=== PATIENT | male | born 1960 | race Caucasian/White ===

== ENCOUNTER 2020-11-06 14:05 | Emergency (ER) | payer MEDICARE, SELFPAY ==
[2020-11-06] VITALS (11 sets, daily range): BP systolic 145–177; BP diastolic 95–109; PULSE 67–81; RESP 7–18; TEMP 36.6–36.7; O2SAT 95–99; BMI 24.3
--- NOTE | 2020-11-06 15:05 | ED_ITS ---
HPI - Animal Bite General: Chief Complaint: Animal Bite Stated Complaint: snake bite on thumb, swelling Time Seen by Provider: 11/06/20 15:01 History of Present Illness: HPI narrative: This patient is a 59-year-old male who presents to the emergency department for snakebite. Patient states he was bitten by a rattlesnake at approximately 10:00 this morning approximately 5 hours ago. Patient states he was rattlesnake. Patient googled images of the snake to verify the type. Patient initially states that he chopped the head off the snake with a shovel and then went down to move it out of the way and still got bit. Patient has significant swelling to the left hand. Initially at the site had some mild swelling and was outlined via by EMS at the scene. However the patient refused transport to the emergency department at that time. Patient now presents to the emergency department swelling has extended up to the mid forearm. Upon my entering the room patient did have ice pack on the hand. According to guidelines and recommendations it is do not elevate hand above the level of the heart do not apply tourniquet and do not apply ice to the lesion. Will do medical evaluation treat as needed. Onset (ago): hour(s) Animal: snake Mechanism: bite Location - Extremities: Left: hand (Left thumb) Associated symptoms: Deny chills, fever(s) or headache(s) Review of Systems General: Reports: 10 or more systems reviewed and unremarkable except in HPI and below Const: Denies: fever(s), chills, body aches or fatigue Eyes: Denies: change in vision or blurry vision ENMT: Denies: throat pain, hoarseness or mouth pain Card: Denies: chest pain, palpitations, irregular heart rhythm, edema, swelling of feet/ankles or lightheadedness Resp: Denies: dyspnea, productive cough, non-productive cough, wheezing or pain on inspiration GI: Denies: abdominal pain, nausea or vomiting : Denies: flank pain, dysuria, urinary frequency, urinary urgency or urinary hesitancy Musc: Denies: neck pain, back pain, extremity pain, extremity swelling, joint pain, joint swelling, joint redness, joint warmth or limited range of motion Skin/Breast: Reports: skin tenderness, skin swelling and new lesions; Denies: rash, pruritus or erythema Neuro: Denies: headache(s), numbness in extremities or weakness in extremities Psych: Denies: anxiety or depression Physical Exam Const: COMMON NORMALS: no acute distress, average body habitus, patient oriented x3, no limitations, healthy appearing, alert and well nourished HENMT: COMMON NORMALS: normocephalic, atraumatic, hearing grossly normal bilaterally, external ears normal, EAC's normal, TM's normal bilaterally, Normal external nose present, Normal nasal mucous membranes and turbinates present, moist oral mucous membranes, oropharynx normal, dentition normal and gingiva normal HEAD & SCALP: normocephalic and atraumatic NOSE: Normal external nose present and Normal nasal mucous membranes and turbinates present EXTERNAL EAR: Yes external ears normal EXTERNAL AUDITORY CANAL: EAC's normal TYMPANIC MEMBRANE: TM's normal bilaterally Neck/C-Spine: COMMON NORMALS: full ROM, no lymphadenopathy, supple, no meningeal signs, no JVD, Thyroid normal and No carotid bruits THYROID: Thyroid normal Chest: COMMONS NORMALS: normal inspection of the chest, normal palpation of entire chest wall, normal inspection of the breasts and normal palpation of the breasts Breast/axilla inspection: Yes normal inspection of the breasts BREAST/AXILLA PALPATION: Yes normal palpation of the breasts Resp: COMMON NORMALS: normal respiratory effort, No retractions, No use of accessory muscles, clear to auscultation bilaterally and percussion normal AUSCULTATION: clear to auscultation bilaterally PERCUSSION: percussion normal Cardio: COMMON NORMALS: no JVD, regular rate, regular rhythm, S1 normal heart sound present, S2 normal heart sound present, No gallops present (Cardio), No clicks present (Cardio), No murmurs present (Cardio), No rub (Cardio) and Peripheral pulses 2+ throughout RATE: regular rate RHYTHM: regular rhythm HEART SOUNDS: S1 normal heart sound present and S2 normal heart sound present PERIPHERAL PULSES: Peripheral pulses 2+ throughout GI: COMMON NORMALS: Normal to inspection, nondistended, normoactive bowel sounds present, Soft to palpation, non-tender, No hepatosplenomegaly present, no masses and no bruits PALPATION: Yes Soft to palpation and Yes No hepatosplenomegaly present : COMMON NORMALS: Yes no CVA tenderness BLADDER/KIDNEY EXAM: Yes no CVA tenderness Back/Pelvis: COMMON NORMALS: no CVA tenderness, thoracic and lumbar spine normal to inspection, no thoracic nor lumbar tenderness, thoraco-lumbar ROM normal and straight leg raise negative bilaterally Extremity: COMMON NORMALS: normal to inspection, full ROM, capillary refill normal, no joint enlargement, no calf tenderness and no pedal edema RIGHT UPPER EXTREMITY: Yes hand & digits (Patient appears to have site of an envenomation. Swelling is now extending) Right hand and digits: Yes inspection (Patient has bite location and distal left thumb. Has a purplish bullae ) and Yes other (Swelling extending up to mid forearm. We will continue to monitor) Neuro: COMMON NORMALS: patient oriented x3 SENSORIUM/ORIENTATION: Yes alert MENINGEAL SIGNS: Yes no meningeal signs Course Reevaluation(s): Reevaluation #1: Patient's D-dimer elevated greater than 20. Fibrinogen is decreased. Patient's PTT and INR are increased. Patient has had increased pain and increased swelling. Patient had initial markings to demarcate the swelling at the time of bite this subsequently upon arrival and within the past hour has extended beyond our demarcation lines. I did discuss at length with patient about concerns of worsening symptoms related to rattlesnake bite. Patient is agreeable be administered CroFab. I did discuss with pharmacy and they will adjust CroFab orders to do appropriate dosage and. Patient is agreeable to admit to the hospital. Time: 16:01 Consultations: Consultation #1: I did discuss at length with Dr. Lauren Javier. She is agreed to accept this patient for admission. She will monitor patient closely for any adverse reactions to CroFab. And any worsening signs and symptoms due to rattlesnake bite. Time: 16:10 Vital Signs: Vital signs: Vital Signs Temperature 98.1 F 11/06/20 14:51 Pulse Rate 81 11/06/20 14:51 Respiratory Rate 16 11/06/20 14:51 Blood Pressure 156/108 11/06/20 14:51 Pulse Oximetry 96 11/06/20 14:51 MDM - Animal Bite MDM Narrative: Medical decision making narrative: This patient is a 59-year-old male who presents to the emergency department for snakebite. Patient states he was bitten by a rattlesnake at approximately 10:00 this morning approximately 5 hours ago. Patient states he was rattlesnake. Patient googled images of the snake to verify the type. Patient initially states that he chopped the head off the snake with a shovel and then went down to move it out of the way and still got bit. Patient has significant swelling to the left hand. Initially at the site had some mild swelling and was outlined via by EMS at the scene. However the patient refused transport to the emergency department at that time. Patient now presents to the emergency department swelling has extended up to the mid forearm. Upon my entering the room patient did have ice pack on the hand. According to guidelines and recommendations it is do not elevate hand above the level of the heart do not apply tourniquet and do not apply ice to the lesion. Patient's D-dimer elevated greater than 20. Fibrinogen is decreased. Patient's PTT and INR are increased. Patient has had increased pain and increased swelling. Patient had initial markings to demarcate the swelling at the time of bite this subsequently upon arrival and within the past hour has extended beyond our demarcation lines. I did discuss at length with patient about concerns of worsening symptoms related to rattlesnake bite. Patient is agreeable be administered CroFab. I did discuss with pharmacy and they will adjust CroFab orders to do appropriate dosage and. Patient is agreeable to admit to the hospital. I did discuss at length with Dr. Lyon. She is agreed to accept this patient for admission. She will monitor patient closely for any adverse reactions to CroFab. And any worsening signs and symptoms due to rattlesnake bite. Differential Diagnosis: Differential diagnosis animal bite: Likely bite by animal Medical Records: Attestation: I reviewed the patient's medical records. Lab Data: Attestation: I reviewed the patient's lab results. Labs: Lab Results 11/06/20 11/06/20 Range/Units 15:11 15:11 PT 16.00 H (12.1-14.9) SECO NDS INR 1.24 H (0.8-1.2) APTT 30.1 (23.9-36.7) SECO NDS Fibrinogen 103 L (174-498) mg/dL D-Dimer >= 20.00 H (0-0.59) ug/mIFE U Sodium 142 (136-145) mmol/L Potassium 4.1 (3.5-5.1) mmol/L Chloride 104 (98-107) mmol/L Carbon Dioxide 27 (22-29) mmol/L Anion Gap 15.1 (5-19) BUN 14 (8-23) mg/dL Creatinine 0.8 (0.7-1.2) mg/dL GFR Calculation 98.3 (90-130) mL/min Glucose 92 (65-115) mg/dL Calculated Osmolal ity 294 (285-295) mOsm/k g Calcium 9.7 (8.5-10.5) mg/dL Total Bilirubin 0.5 (0.15-1.2) mg/dL AST 30 (0-40) U/L ALT 25 (0-41) U/L Alkaline Phosphata se 75 (40-130) IU/L Creatine Kinase 224 (39-308) U/L Total Protein 7.7 (6.6-8.7) g/dL Albumin 4.6 (3.5-5.2) g/dL Globulin 3.1 (1.3-4.6) g/dL Discharge Plan Discharge Patient Disposition: Admitted As Inpatient Clinical Impression: Snake bite Condition: Stable Coding Level of Care Code ED Frame Stripper And Crusher for Lilian Fwd Exam Comprehensive
[2020-11-06 15:21] LABS: Basophils # 0.1 10^3/uL (0.0-0.1); Basophils % 0.8 %; Eosinophils # 0.1 10^3/uL (0.0-0.8); Hematocrit 44.7 % (42.0-52.0); Hemoglobin 14.9 g/dL (11.7-16.6); Lymphocytes # 1.2 10^3/uL (0.8-4.8); Lymphocytes % 18.6 %; Mean Corpuscular HGB Conc 33.3 g/dL (30.0-36.0); Mean Corpuscular Volume 89.9 fL (80-94); Mean Platelet Volume 11.9 fL (7.4-10.4); Monocytes # 0.4 10^3/uL (0.2-0.9); Monocytes % 5.6 %; Neutrophils # 4.69 10^3/uL (1.8-7.7); Neutrophils % 72.8 %; Nucleated Red Blood Cells % 0 %; Red Blood Count 4.97 10^6/uL (4.1-5.3); Red Cell Distribution Width 14.6 % (12.1-15.1); White Blood Count 6.4 10^3/uL (4.0-10.0)
[2020-11-06 15:31] LABS: INR 1.24 (0.8-1.2); Partial Thromboplastin Time 30.1 SECONDS (23.9-36.7)
[2020-11-06] MEDS: ondansetron 2 mg/ML SDV 2 mL 4 MG IVP (15:37)
[2020-11-06] MEDS: morphine 4 mg/mL SDV 1 mL 2 MG IVP (15:37)
[2020-11-06 15:38] LABS: Alanine Aminotransferase 25 U/L (0-41); Albumin Level 4.6 g/dL (3.5-5.2); Alkaline Phosphatase 75 IU/L (40-130); Anion Gap 15.1 (5-19); Aspartate Amino Transferase 30 U/L (0-40); Blood Urea Nitrogen 14 mg/dL (8-23); Calcium 9.7 mg/dL (8.5-10.5); Carbon Dioxide 27 mmol/L (22-29); Chloride 104 mmol/L (98-107); Creatine Phosphokinase 224 U/L (39-308); Fibrinogen 103 mg/dL (174-498); Globulin 3.1 g/dL (1.3-4.6); Glomerular Filtration Rate 98.3 mL/min (90-130); Glucose 92 mg/dL (65-115); Osmolality Calculated 294 mOsm/kg (285-295); Potassium 4.1 mmol/L (3.5-5.1); Sodium 142 mmol/L (136-145); Total Bilirubin 0.5 mg/dL (0.15-1.2); Total Protein 7.7 g/dL (6.6-8.7)
[2020-11-06] MEDS: tetanus-dipt-pertussis 0.5 mL SDV IM (15:38)
[2020-11-06 15:49] LABS: D Dimer >= 20.00 ug/mIFEU (0-0.59)
[2020-11-06 16:19] LABS: Platelet Count 8 10^3/cmm (130-400)
[2020-11-06 16:20] LABS: Slide Review Slide Review Perform
[2020-11-06] MEDS: crotalidae antivenin 4 GM in sodium chloride 0.9% 250 ML IV (16:54)
--- NOTE | 2020-11-06 16:57 | PC.NURSE ---
1653 initiated Crofab at 50ml/hr for first 10 minutes at this time
[2020-11-06] MEDS: morphine 4 mg/mL SDV 1 mL IVP ×2 (18:05→22:22)
[2020-11-06] MEDS: diphenhydrAMINE 50 mg/mL SDV 1mL 12.5 MG IVP (18:25)
[2020-11-06] MEDS: sodium chloride 0.9% (100 ml) 100 ML (21:00)
[2020-11-06 22:22] LABS: Basophils % 0.7 %; Eosinophils # 0.2 10^3/uL (0.0-0.8); Eosinophils % 2.9 %; Hematocrit 42.1 % (42.0-52.0); Hemoglobin 13.7 g/dL (11.7-16.6); Lymphocytes # 1.1 10^3/uL (0.8-4.8); Lymphocytes % 20.5 %; Mean Corpuscular HGB Conc 32.5 g/dL (30.0-36.0); Mean Corpuscular Hemoglobin 29.7 pg (28.0-34.0); Mean Corpuscular Volume 91.1 fL (80-94); Mean Platelet Volume 11.5 fL (7.4-10.4); Monocytes # 0.4 10^3/uL (0.2-0.9); Monocytes % 6.7 %; Neutrophils # 3.81 10^3/uL (1.8-7.7); Nucleated Red Blood Cells % 0 %; Platelet Count 93 10^3/cmm (130-400); Red Blood Count 4.62 10^6/uL (4.1-5.3); Red Cell Distribution Width 14.7 % (12.1-15.1); White Blood Count 5.5 10^3/uL (4.0-10.0)
--- NOTE | 2020-11-06 22:43 | PC.NURSE ---
Jade from poison control calls at this time and recommends repeat cbc, cmp, and coags
[2020-11-06 23:30] LABS: INR 1.28 (0.8-1.2); Partial Thromboplastin Time 28.5 SECONDS (23.9-36.7)
--- NOTE | 2020-11-07 00:02 | PC.NURSE ---
report to Mick HERNANDEZ at [facility] ICU at Call
--- NOTE | 2020-11-07 00:03 | PC.NURSE ---
report to Shaquille HERNANDEZ
--- NOTE | 2020-11-07 00:19 | PC.NURSE ---
report to Lorenzo HERNANDEZ
[2020-11-07 00:43] VITALS: BP 157/92; PULSE 75; RESP 18; O2SAT 96
--- NOTE | 2020-11-07 00:58 | PC.NURSE ---
EMS arrived to transport the patient; patient not found in room. was not witnessed leaving. patient assumed eloped.
--- NOTE | 2020-11-07 01:12 | PC.NURSE ---
police called due to patient leaving with assumed having IV still in arm; no evidence in room that patient has taken it out; patient did leave his cell phone on the bed, although it is not charged at this time. 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
--- NOTE | 2020-11-07 01:45 | PC.NURSE ---
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 Police notified of update. Contact in pt chart notified.
== END 2020-11-07 01:00 | disposition left against medical advice (07) ==
PROVIDERS: Emergency Provider Emergency Medicine
DX: T63.011A Toxic effect of rattlesnake venom, accidental (unintentional), initial encounter (principal); Z23 Encounter for immunization; W59.11XA Bitten by nonvenomous snake, initial encounter; D69.6 Thrombocytopenia, unspecified; M54.9 Dorsalgia, unspecified; G89.29 Other chronic pain; Z86.19 Personal history of other infectious and parasitic diseases; F17.210 Nicotine dependence, cigarettes, uncomplicated
CPT/HCPCS: 36415; 36430; 80053; 81001; 82550; 83605; 85025; 85362; 85378; 85384; 85610; 85730; 86900; 87040; 90471; 90715; 93005; 96361; 96365; 96375; 96376; 99285; G0378; J0840; J1200; J2270; J2405; J7030; J7050; P9016

== ENCOUNTER 2020-11-07 09:37 | Observation (INO) | payer MEDICARE, SELFPAY ==
[2020-11-07] VITALS (26 sets, daily range): BP systolic 127–175; BP diastolic 91–117; PULSE 63–95; RESP 12–28; O2SAT 91–100; BMI 24.3
--- NOTE | 2020-11-07 09:42 | ECG_ITS ---
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: : 1960 Requested By: Rolando Styles Order Number: [id number] Reading MD: PALOMO MONK Measurements Intervals [place] Rate: 96 P: 69 NC: 147 QRS: 64 QRSD: 110 T: 50 QT: 384 QTc: 486 Interpretive Statements SINUS RHYTHM WITH OCCASIONAL VENTRICULAR PREMATURE COMPLEXES LEFT ATRIAL ENLARGEMENT [-0.15mV P WAVE IN V1/V2] POSSIBLE INFERIOR MYOCARDIAL INFARCTION [30 ms Q WAVE IN II/aVF], PROBABLY OLD Compared to ECG 12/17/2017 09:17:56 Ventricular premature complex(es) now present Atrial abnormality now present Myocardial infarct finding now present Electronically Signed On 11-07-2020 19:24:27 CDT by PALOMO MONK [id number]
--- NOTE | 2020-11-07 09:53 | ED_ITS ---
HPI - Animal Bite General: Chief Complaint: General Medical Stated Complaint: SNAKE BITE Time Seen by Provider: 11/07/20 09:42 History of Present Illness: HPI narrative: 59-year-old male presents emergency room with complaints of a snakebite. He was bitten on the left hand yesterday he was in the emergency room received CroFab.He had developed severe thrombocytopenia and his platelet count was down to 8. He received platelets his platelet count was back up to 93. His INR was 128 his D-dimer was greater than 20 his fibrinogen was 103. CMP was unremarkable he was set to be transferred to an outside facility because we have limited amount of CroFab sandra ilable he was given 2 doses. Patient ended up leaving AMA. He returns today because he is not feeling well. He has increased swelling in his left arm he is a large blood-filled bulla at the site of the bite. There is bruising and swelling of the forearm extending to the midshaft of the humerus. Edema is somewhat dependent. Patient has noticed darkened urine he denies any dysuria urgency or frequency. MD complaint: animal bite ( Rattle snake) Onset (ago): hour(s) Animal: snake Description of animal: wild animal Mechanism: bite Location - Extremities: Left: hand Pain description: dull and constant Associated symptoms: Deny bleeding, chills, cough, diaphoresis, erythema, fever(s), headache(s), numbness, rash, short of breath, syncope, weakness or wound drainage Review of Systems Const: Denies: fever(s), chills or diaphoresis ENMT: Denies: throat pain, ear or mastoid pain, nasal discharge or nasal congestion Card: Denies: syncope Resp: Denies: dyspnea, productive cough or non-productive cough GI: Denies: abdominal pain, nausea, vomiting, hematemesis, coffee ground emesis, diarrhea, constipation, bloating, hematochezia or melena : Denies: flank pain, dysuria, urinary frequency or urinary urgency Skin/Breast: Denies: rash or pruritus Neuro: Denies: headache(s) PFS ED PFSH: Medical History (Updated 11/11/20 @ 06:04 by Rolando Burton DO) Chronic back pain Chronic constipation Chronic pain DJD (degenerative joint disease) Hepatitis C Stage II fibrosis per liver biopsy in the past. Hepatitis C has been treated Hydrocele Surgical History (Updated 11/07/20 @ 14:19 by Juan Dominguez MD) History of back surgery History of hernia repair History of tonsillectomy Family History (Updated 11/07/20 @ 14:20 by Juan Dominguez MD) Other Cancer Social History (Updated 11/07/20 @ 14:20 by Juan Dominguez MD) Smoking and tobacco status: current some day smoker Alcohol intake: current Alcohol intake frequency: 0-2 Drinks per Day Physical Exam Const: COMMON NORMALS: no acute distress GENERAL APPEARANCE: cooperative and comfortable HENMT: COMMON NORMALS: normocephalic, atraumatic and hearing grossly normal bilaterally HEAD & SCALP: normocephalic and atraumatic Neck/C-Spine: COMMON NORMALS: no JVD Resp: COMMON NORMALS: normal respiratory effort, No retractions, No use of accessory muscles and clear to auscultation bilaterally AUSCULTATION: clear to auscultation bilaterally Cardio: COMMON NORMALS: no JVD, regular rate, regular rhythm and No murmurs present (Cardio) RATE: regular rate RHYTHM: regular rhythm GI: COMMON NORMALS: Soft to palpation and No hepatosplenomegaly present AUSCULTATION: Yes normoactive bowel sounds PALPATION: Yes Soft to palpation, No Tenderness to palpation present (GI), No Guarding due to palpation present (GI) and Yes No hepatosplenomegaly present Extremity: NARRATIVE EXTREMITY EXAM: Blood-filled bruise on the medial aspect of the left thumb. There is swelling of the hand and forehead. No significant pain with passive range of motion is also dependent edema of the medial and posterior aspects of the left upper arm to the midshaft of the humerus with mild ecchymosis. No induration no erythema. Skin: COMMON NORMALS: no rashes or lesions noted GENERAL SKIN EXAM: no r ashes or lesions noted and no erythema Course Vital Signs: Vital signs: Vital Signs Temperature 98 F 11/08/20 14:11 Pulse Rate 84 11/08/20 14:11 Respiratory Rate 25 H 11/08/20 14:11 Blood Pressure 148/98 11/08/20 14:11 Pulse Oximetry 93 11/08/20 14:11 MDM - Animal Bite MDM Narrative: Medical decision making narrative: Discussed Dr. Ramos also contacted poison control recommendations and toxicology they do recommend that we monitor him to the ICU and administer more CroFab. Orders have been written. Lab Data: Labs: Lab Results 11/07/20 11/07/20 11/07/20 Range/Units 10:19 10:25 10:25 WBC 5.1 (4.0-10.0) 10^3/ uL RBC 4.93 (4.1-5.3) 10^6/u L Hgb 14.6 (11.7-16.6) g/dL Hct 44.6 (42.0-52.0) % MCV 90.5 (80-94) fL MCH 29.6 (28.0-34.0) pg MCHC 32.7 (30.0-36.0) g/dL RDW 14.8 (12.1-15.1) % Plt Count 80 L (130-400) 10^3/c mm MPV 12.0 H (7.4-10.4) fL Neut % (Auto) 71.9 % Lymph % (Auto) 16.6 % [place] % (Auto) 6.8 % Eos % (Auto) 3.7 % Baso % (Auto) 0.8 % Neut # (Auto) 3.67 (1.8-7.7) 10^3/u L Lymph # (Auto) 0.9 (0.8-4.8) 10^3/u L [place] # (Auto) 0.4 (0.2-0.9) 10^3/u L Eos # (Auto) 0.2 (0.0-0.8) 10^3/u L Baso # (Auto) 0.0 (0.0-0.1) 10^3/u L Nucleated RBC % (a uto) 0 % Nucleated RBCs # 0.0 /100WBC PT 14.80 (12.1-14.9) SECO NDS INR 1.13 (0.8-1.2) APTT 27.1 (23.9-36.7) SECO NDS Fibrin Degrad Prod ucts Pos, >=40 H (NEG) ug/mL D-Dimer >= 20.00 H (0-0.59) ug/mIFE U Sodium (136-145) mmol/L Potassium (3.5-5.1) mmol/L Chloride (98-107) mmol/L Carbon Dioxide (22-29) mmol/L Anion Gap (5-19) BUN (8-23) mg/dL Creatinine (0.7-1.2) mg/dL GFR Calculation (90-130) mL/min Glucose (65-115) mg/dL Calculated Osmolal ity (285-295) mOsm/k g Lactic Acid (0.5-2.2) mmol/L Calcium (8.5-10.5) mg/dL Total Bilirubin (0.15-1.2) mg/dL AST (0-40) U/L ALT (0-41) U/L Alkaline Phosphata se (40-130) IU/L Creatine Kinase (39-308) U/L Total Protein (6.6-8.7) g/dL Albumin (3.5-5.2) g/dL Globulin (1.3-4.6) g/dL Urine Color Dark yellow (Yellow) Urine Appearance Clear (CLEAR) Urine pH 5 (5-7) Ur Specific Gravit y 1.025 (1.005-1.030) Urine Protein Neg (Negative) Urine Glucose (UA) Norm (Normal) Urine Ketones Negative (Negative) Urine Blood 2+ H (Negative) Urine Nitrate Negative (Negative) Urine Bilirubin Neg (Negative) Urine Urobilinogen 1 H (Negative) mg/dL Ur Leukocyte Princess ase Negative (Negative) Urine RBC Rare (0-2) /hpf Urine WBC 0-4 H (0-5) /hpf Ur Squamous Epith Cells 0-4 H (0-5) /hpf Amorphous Sediment Not Reportable Urine Bacteria Trace (NONE) /hpf 11/07/20 11/07/20 Range/Units 10:25 10:25 WBC (4.0-10.0) 10^3/ uL RBC (4.1-5.3) 10^6/u L Hgb (11.7-16.6) g/dL Hct (42.0-52.0) % MCV (80-94) fL MCH (28.0-34.0) pg MCHC (30.0-36.0) g/dL RDW (12.1-15.1) % Plt Count (130-400) 10^3/c mm MPV (7.4-10.4) fL Neut % (Auto) % Lymph % (Auto) % [place] % (Auto) % Eos % (Auto) % Baso % (Auto) % Neut # (Auto) (1.8-7.7) 10^3/u L Lymph # (Auto) (0.8-4.8) 10^3/u L [place] # (Auto) (0.2-0.9) 10^3/u L Eos # (Auto) (0.0-0.8) 10^3/u L Baso # (Auto) (0.0-0.1) 10^3/u L Nucleated RBC % (a uto) % Nucleated RBCs # /100WBC PT (12.1-14.9) SECO NDS INR (0.8-1.2) APTT (23.9-36.7) SECO NDS Fibrin Degrad Prod ucts (NEG) ug/mL D-Dimer (0-0.59) ug/mIFE U Sodium 139 (136-145) mmol/L Potassium 4.3 (3.5-5.1) mmol/L Chloride 103 (98-107) mmol/L Carbon Dioxide 27 (22-29) mmol/L Anion Gap 13.3 (5-19) BUN 10 (8-23) mg/dL Creatinine 0.7 (0.7-1.2) mg/dL GFR Calculation 114.6 (90-130) mL/min Glucose 133 H (65-115) mg/dL Calculated Osmolal ity 289 (285-295) mOsm/k g Lactic Acid 1.0 (0.5-2.2) mmol/L Calcium 9.0 (8.5-10.5) mg/dL Total Bilirubin 0.7 (0.15-1.2) mg/dL AST 26 (0-40) U/L ALT 21 (0-41) U/L Alkaline Phosphata se 81 (40-130) IU/L Creatine Kinase 158 (39-308) U/L Total Protein 7.6 (6.6-8.7) g/dL Albumin 4.6 (3.5-5.2) g/dL Globulin 3.0 (1.3-4.6) g/dL Urine Color (Yellow) Urine Appearance (CLEAR) Urine pH (5-7) Ur Specific Gravit y (1.005-1.030) Urine Protein (Negative) Urine Glucose (UA) (Normal) Urine Ketones (Negative) Urine Blood (Negative) Urine Nitrate (Negative) Urine Bilirubin (Negative) Urine Urobilinogen (Negative) mg/dL Ur Leukocyte Princess ase (Negative) Urine RBC (0-2) /hpf Urine WBC (0-5) /hpf Ur Squamous Epith Cells (0-5) /hpf Amorphous Sediment Urine Bacteria (NONE) /hpf Discharge Plan Discharge Patient Disposition: Placed in Observation Admit Provider: Juan Dominguez Clinical Impression: Snake bite, Thrombocytopenia, Hepatitis C Coding Level of Care Code ED Information Clerk Brokerage for Chg Fwd Exam Detailed
[2020-11-07 10:38] LABS: Basophils % 0.8 %; Eosinophils # 0.2 10^3/uL (0.0-0.8); Eosinophils % 3.7 %; Hematocrit 44.6 % (42.0-52.0); Hemoglobin 14.6 g/dL (11.7-16.6); Lymphocytes # 0.9 10^3/uL (0.8-4.8); Lymphocytes % 16.6 %; Mean Corpuscular HGB Conc 32.7 g/dL (30.0-36.0); Mean Corpuscular Hemoglobin 29.6 pg (28.0-34.0); Mean Corpuscular Volume 90.5 fL (80-94); Monocytes # 0.4 10^3/uL (0.2-0.9); Monocytes % 6.8 %; Neutrophils # 3.67 10^3/uL (1.8-7.7); Neutrophils % 71.9 %; Nucleated Red Blood Cells % 0 %; Platelet Count 80 10^3/cmm (130-400); Red Blood Count 4.93 10^6/uL (4.1-5.3); Red Cell Distribution Width 14.8 % (12.1-15.1); White Blood Count 5.1 10^3/uL (4.0-10.0)
[2020-11-07 10:53] LABS: INR 1.13 (0.8-1.2)
[2020-11-07 10:54] LABS: Partial Thromboplastin Time 27.1 SECONDS (23.9-36.7)
[2020-11-07 10:58] LABS: Add Urine Microscopic? YES; Bilirubin Urine Neg (Negative); Blood Urine 2+ (Negative); Glucose Urine UA Norm (Normal); Ketones Urine Negative (Negative); Leukocyte Esterase Urine Negative (Negative); Nitrate Urine Negative (Negative); Protein Urine Neg (Negative); Specific Gravity, Urine 1.025 (1.005-1.030); Urine Appearance Clear (CLEAR); Urine Color Dark Yellow (Yellow); Urobilinogen Urine 1 mg/dL (Negative); pH Urine 5 (5-7)
[2020-11-07] MEDS: ondansetron 2 mg/ML SDV 2 mL 4 MG IVP ×2 (10:59→19:09)
[2020-11-07] MEDS: morphine 4 mg/mL SDV 1 mL IVP (10:59)
[2020-11-07 11:04] LABS: Alanine Aminotransferase 21 U/L (0-41); Albumin Level 4.6 g/dL (3.5-5.2); Alkaline Phosphatase 81 IU/L (40-130); Anion Gap 13.3 (5-19); Aspartate Amino Transferase 26 U/L (0-40); Blood Urea Nitrogen 10 mg/dL (8-23); Carbon Dioxide 27 mmol/L (22-29); Chloride 103 mmol/L (98-107); Creatine Phosphokinase 158 U/L (39-308); Glomerular Filtration Rate 114.6 mL/min (90-130); Glucose 133 mg/dL (65-115); Osmolality Calculated 289 mOsm/kg (285-295); Potassium 4.3 mmol/L (3.5-5.1); Sodium 139 mmol/L (136-145); Total Bilirubin 0.7 mg/dL (0.15-1.2); Total Protein 7.6 g/dL (6.6-8.7)
[2020-11-07 11:04] LABS: Bacteria Urine TRACE /hpf; RBC Urine RARE /hpf (0-2); Squamous Epithelial Cell Urine 0-4 /hpf (0-5); WBC Urine 0-4 /hpf (0-5)
[2020-11-07 11:05] LABS: Add Urine Culture? No
[2020-11-07 11:10] LABS: D Dimer >= 20.00 ug/mIFEU (0-0.59)
--- NOTE | 2020-11-07 12:48 | PC.NURSE ---
spoke with Candy at Poison Control. Gave instructions/recommendations to ED physician and hospitalist.
--- NOTE | 2020-11-07 14:13 | P.CONIM_ITS ---
Providers/Reason For Consult Consulting Physician/Specialty*: Juan Dominguez MD, hospitalist Reason for Consult*: Snakebite Requesting Physician: Dr. Burton History of Present Illness History of Present Illness Angelo Kang is a 59 year old male with history of snakebite to the left thumb. Patient identified snake as a rattlesnake secondary to rattle on its tail. He was bitten yesterday around 10 AM after killing the snake he picked up the severed head with part of the body and the snake clamped down. He reports shortly afterwards he developed swelling of his left thumb and arm. He presented to the emergency department yesterday with severe thrombocytopenia, and evidence of DIC on laboratory. He received CroFab as well as platelets, and was being transferred to an outside ICU as no beds were here when he left [facility]. Patient reports that he has recurrence of some pain and swelling this morning. He reports that the swelling he did have in his upper arm, above the elbow is better. He denies any fever or chills. He did receive a tetanus booster yesterday through the emergency department. Review of Systems General: Reports: 10 or more systems reviewed and unremarkable except in HPI and below Const: Denies: fever(s) or chills Eyes: Denies: change in vision ENMT: Denies: throat pain Card: Denies: chest pain Resp: Denies: dyspnea GI: Denies: abdominal pain, nausea or vomiting : Reports: testicular pain (chronic) Musc: Reports: extremity pain Skin/Breast: Denies: rash Neuro: Denies: headache(s) Psych: Reports: depression; Denies: anxiety Endo: Denies: polyuria Slade/Lymph: Denies: easy bruising All/Imm: Denies: urticaria Meds/Allergies Home Medications and Allergies Home Medications Medication Instructions Recorded Confirmed Last Taken Type albuterol sulfate [ProAir HFA] 2 puff INHALATION Q4H PRN 11/06/20 11/07/20 Unknown History dextroamphetamine-amphetamine 20 mg PO BID MDD 40mg 11/06/20 11/07/20 11/07/20 History fentanyl 100 mcg TRANSDERMAL Q72H 11/06/20 11/07/20 11/07/20 History oxycodone 20 mg PO Q12H MDD 40mg 11/06/20 11/07/20 11/07/20 History Allergies Allergy/AdvReac Type Severity Reaction Status Date / Time Penicillins Allergy Unknown Verified 11/06/20 15:32 PFSH Acute PFSH: Medical History (Updated 11/07/20 @ 14:23 by Juan Dominguez MD) Chronic back pain Chronic constipation Chronic pain DJD (degenerative joint disease) Hepatitis C Stage II fibrosis per liver biopsy in the past. Hepatitis C has been treated Hydrocele Surgical History (Updated 11/07/20 @ 14:19 by Juan Dominguez MD) History of back surgery History of hernia repair History of tonsillectomy Family History (Updated 11/07/20 @ 14:20 by Juan Dominguez MD) Other Cancer Social History (Updated 11/07/20 @ 14:20 by Juan Dominguez MD) Smoking and tobacco status: current some day smoker Alcohol intake: current Alcohol intake frequency: 0-2 Drinks per Day Supplemental PFSH Information: History of left collarbone surgery following fracture Vitals/I&O/Wt Last Vital Signs Pulse 80 11/07/20 10:58 Resp 18 11/07/20 10:59 BP 144/92 11/07/20 09:44 Pulse Ox 98 11/07/20 10:59 Weight last 48 hrs Weight 86.183 kg Physical Exam Narrative: EXAM NARRATIVE: General exam is a white male, in no apparent distress HEENT: Pupils equally round. Oropharynx clear. Neck is supple no lymphadenopathy or thyromegaly Cardiovascular regular rate and rhythm without murmur Lungs clear Abdomen is soft, positive bowel sounds, no organomegaly exam is deferred Extremities no cyanosis clubbing or edema in his lower extremities. Left upper extremity demonstrates swollen thumb with intact sensation. Cap refill is intact. Sensation intact. Large bullae of blood is noted. Hand has edema but full range of motion. Forearm slightly swollen. Some bruising up into his upper arm but no significant swelling past the elbow. Skin see findings above Neuro no focal deficits Data Micro: Micro: Microbiology 11/07/20 11:07 Blood Culture - Pr eliminary Blood SPECIMEN COLLE BRYN Other Data: Other data: PT and INR normal. Fibrinogen degradation products greater than 40 with D-dimer greater than 20. LFTs are normal. Glucose slightly high at 133. Urine 2+ blood but 0-4 whites and rare reds EKG demonstrates sinus rhythm normal axis left atrial enlargement A&P Assessment and plan (1) Snake bite: Rattlesnake envenomation He received CroFab yesterday through the emergency department as well as platelets and went AGAINST MEDICAL ADVICE He represents with slight increase in swelling and pain. Fibrinogen degradation products and D-dimer are markedly abnormal. Platelet count is 80,000. Patient believes his baseline platelet count is around 90,000. PT and PTT are normal. Currently poison control is recommending redosing with CroFab, and close follow- up in an ICU setting. Currently we do not have any ICU beds. CroFab will be initiated in the ER, and follow-up of coagulation parameters in 6 hours. The emergency department physician has indicated to me he will be looking for an ICU setting for this patient currently, but certainly depending upon clinical course and recommendations of poison control this could be amended. Immobilize bitten extremity Status: Acute (2) Hepatitis C: Patient reports he has been treated and virus free. He reports his underlying platelet count is around 90,000 at baseline Status: Acute (3) Chronic pain: He is on chronic narcotics, which will be continued Status: Acute Additional A&P Information Full code Consult Attestations Medical Necessity Statement: Not applicable, likely transfer Time Spent in Patient Care: Greater than 35 minutes Coding Level of Care Code Acute Health Administrator for [facility] Fwd Diagnoses Snake bite W59.11XA Hepatitis C B19.20 Chronic pain G89.29
[2020-11-07] MEDS: sodium chloride 0.9% 1,000 ML 100 ML IV (16:09)
[2020-11-07 17:15] LABS: Basophils % 0.9 %; Eosinophils # 0.2 10^3/uL (0.0-0.8); Eosinophils % 4.3 %; Hematocrit 41.4 % (42.0-52.0); Hemoglobin 13.5 g/dL (11.7-16.6); Lymphocytes % 23.4 %; Mean Corpuscular HGB Conc 32.6 g/dL (30.0-36.0); Mean Corpuscular Hemoglobin 30.1 pg (28.0-34.0); Mean Corpuscular Volume 92.2 fL (80-94); Mean Platelet Volume 10.8 fL (7.4-10.4); Monocytes # 0.3 10^3/uL (0.2-0.9); Monocytes % 7.7 %; Neutrophils # 2.79 10^3/uL (1.8-7.7); Neutrophils % 63.2 %; Nucleated Red Blood Cells % 0 %; Platelet Count 66 10^3/cmm (130-400); Red Blood Count 4.49 10^6/uL (4.1-5.3); Red Cell Distribution Width 14.8 % (12.1-15.1); White Blood Count 4.4 10^3/uL (4.0-10.0)
[2020-11-07 17:30] LABS: INR 1.19 (0.8-1.2); Partial Thromboplastin Time 30.3 SECONDS (23.9-36.7)
[2020-11-07 17:31] LABS: Fibrinogen 165 mg/dL (174-498)
[2020-11-07 17:35] LABS: Alanine Aminotransferase 19 U/L (0-41); Alkaline Phosphatase 67 IU/L (40-130); Anion Gap 11.9 (5-19); Aspartate Amino Transferase 22 U/L (0-40); Blood Urea Nitrogen 10 mg/dL (8-23); Calcium 8.7 mg/dL (8.5-10.5); Carbon Dioxide 26 mmol/L (22-29); Chloride 101 mmol/L (98-107); Creatinine Clr Calc Pharmacy 153.2329; Globulin 2.8 g/dL (1.3-4.6); Glucose 91 mg/dL (65-115); Osmolality Calculated 279 mOsm/kg (285-295); Potassium 3.9 mmol/L (3.5-5.1); Sodium 135 mmol/L (136-145); Total Bilirubin 0.8 mg/dL (0.15-1.2); Total Protein 6.8 g/dL (6.6-8.7)
[2020-11-07 17:36] LABS: Creatine Phosphokinase 112 U/L (39-308)
[2020-11-07 17:47] LABS: D Dimer >= 20.00 ug/mIFEU (0-0.59)
[2020-11-07] MEDS: morphine 4 mg/mL SDV 1 mL 2 MG IVP ×2 (19:09→22:46)
--- NOTE | 2020-11-07 20:55 | PC.NURSE ---
[facility] Patient tells nurse that government is watching him. He doesn't pay his hospital bills and that someone calls him and tells him to send them all of his bills but he doesn't know who they are. It a secret . When I get in the bath and have the water come up over my hips, the transistor radio will go out. They have me wired. Patient has multiple similar conversations with nurse. Patient also insist on lancing his snake bite, will not hold it still. I have educated him multiple times about this and he doesn't believe nurse. Patient states, They always use me as a guinea pig, the government. Educated patient on snake bite and poison control recommendations. Patient verbalized understanding, then immediate asks the nurse to do things that contradict what we just talked about.
[2020-11-08] VITALS (38 sets, daily range): BP systolic 129–167; BP diastolic 85–135; PULSE 61–84; RESP 11–29; TEMP 36.6; O2SAT 82–99
[2020-11-08] MEDS: sodium chloride 0.9% 1,000 ML 100 ML IV (03:02)
[2020-11-08] MEDS: oxyCODONE-APAP 5-325 mg Tablet 1 TAB PO (03:02)
--- NOTE | 2020-11-08 03:10 | PC.NURSE ---
No change to swelling, redness to Left arm. Pulses good. Pain 6/10
[2020-11-08] MEDS: morphine 4 mg/mL SDV 1 mL 2 MG IVP ×2 (04:51→09:21)
[2020-11-08 09:13] LABS: Basophils # 0.1 10^3/uL (0.0-0.1); Basophils % 1.4 %; Eosinophils # 0.2 10^3/uL (0.0-0.8); Eosinophils % 5.8 %; Hematocrit 43.8 % (42.0-52.0); Hemoglobin 14.1 g/dL (11.7-16.6); Lymphocytes # 0.9 10^3/uL (0.8-4.8); Lymphocytes % 23.8 %; Mean Corpuscular HGB Conc 32.2 g/dL (30.0-36.0); Mean Corpuscular Hemoglobin 29.3 pg (28.0-34.0); Mean Corpuscular Volume 91.1 fL (80-94); Monocytes # 0.2 10^3/uL (0.2-0.9); Monocytes % 6.4 %; Neutrophils # 2.26 10^3/uL (1.8-7.7); Neutrophils % 62.6 %; Nucleated Red Blood Cells % 0 %; Platelet Count 56 10^3/cmm (130-400); Red Blood Count 4.81 10^6/uL (4.1-5.3); Red Cell Distribution Width 14.4 % (12.1-15.1); White Blood Count 3.6 10^3/uL (4.0-10.0)
[2020-11-08 09:31] LABS: INR 1.19 (0.8-1.2)
[2020-11-08 09:32] LABS: Partial Thromboplastin Time 31.3 SECONDS (23.9-36.7)
[2020-11-08 09:33] LABS: Fibrinogen 194 mg/dL (174-498)
[2020-11-08 09:43] LABS: Alanine Aminotransferase 16 U/L (0-41); Albumin Level 3.9 g/dL (3.5-5.2); Alkaline Phosphatase 73 IU/L (40-130); Anion Gap 11.2 (5-19); Aspartate Amino Transferase 21 U/L (0-40); Blood Urea Nitrogen 10 mg/dL (8-23); Calcium 8.4 mg/dL (8.5-10.5); Carbon Dioxide 24 mmol/L (22-29); Chloride 106 mmol/L (98-107); Creatine Phosphokinase 90 U/L (39-308); Creatinine Clr Calc Pharmacy 153.2329; Globulin 2.8 g/dL (1.3-4.6); Glucose 97 mg/dL (65-115); Osmolality Calculated 283 mOsm/kg (285-295); Potassium 4.2 mmol/L (3.5-5.1); Sodium 137 mmol/L (136-145); Total Bilirubin 0.8 mg/dL (0.15-1.2); Total Protein 6.7 g/dL (6.6-8.7)
[2020-11-08 09:53] LABS: D Dimer >= 20.00 ug/mIFEU (0-0.59)
--- NOTE | 2020-11-10 18:43 | PC.RESP ---
SMOKING CESSATION INFORMATION SENT TO PATIENT.
== END 2020-11-08 14:31 | disposition home or self-care (01) ==
LOC: ER 15:02 → ICU 17:06
PROVIDERS: Admitting Provider Internal Medicine; Emergency Provider Family Medicine; Visit Provider Internal Medicine
DX: T63.011A Toxic effect of rattlesnake venom, accidental (unintentional), initial encounter (principal); W59.11XA Bitten by nonvenomous snake, initial encounter; D69.6 Thrombocytopenia, unspecified; M54.9 Dorsalgia, unspecified; G89.29 Other chronic pain; Z86.19 Personal history of other infectious and parasitic diseases; F17.210 Nicotine dependence, cigarettes, uncomplicated
CPT/HCPCS: 36415; 80053; 81001; 82550; 83605; 85025; 85362; 85378; 85384; 85610; 85730; 87040; 93005; 96361; 96365; 96375; 99285; G0378; J0840; J2270; J2405; J7030; J7050

== ENCOUNTER 2020-11-10 10:24 | Outpatient (CLI) | payer MEDICARE, SELFPAY ==
[2020-11-10 11:03] LABS: Basophils # 0.1 10^3/uL (0.0-0.1); Basophils % 1.2 %; Eosinophils # 0.2 10^3/uL (0.0-0.8); Eosinophils % 3.7 %; Hematocrit 39.9 % (42.0-52.0); Hemoglobin 13.1 g/dL (11.7-16.6); Lymphocytes % 22.2 %; Mean Corpuscular HGB Conc 32.8 g/dL (30.0-36.0); Mean Corpuscular Hemoglobin 29.8 pg (28.0-34.0); Mean Corpuscular Volume 90.9 fL (80-94); Mean Platelet Volume 12.8 fL (7.4-10.4); Monocytes # 0.4 10^3/uL (0.2-0.9); Monocytes % 8.9 %; Neutrophils # 2.72 10^3/uL (1.8-7.7); Neutrophils % 63.8 %; Nucleated Red Blood Cells % 0 %; Platelet Count 54 10^3/cmm (130-400); Red Blood Count 4.39 10^6/uL (4.1-5.3); Red Cell Distribution Width 14.6 % (12.1-15.1); White Blood Count 4.3 10^3/uL (4.0-10.0)
== END 2020-11-10 10:25 | disposition home or self-care (01) ==
PROVIDERS: Visit Provider Hospitalist
DX: D69.6 Thrombocytopenia, unspecified (principal); W59.11XA Bitten by nonvenomous snake, initial encounter
CPT/HCPCS: 36415; 85025